=== PATIENT | female | born 1950 | race Caucasian/White ===

== ENCOUNTER 2016-05-23 14:22 | Emergency (ER) | payer OTHER | END 2016-05-23 16:00 | disposition home or self-care (01) | LOC: ER 14:22 | DX: G97.61 Postprocedural hematoma of a nervous system organ or structure following a nervous system procedure (principal); R56.9 Unspecified convulsions; R53.1 Weakness; Z98.890 Other specified postprocedural states; Z87.891 Personal history of nicotine dependence | CPT/HCPCS: 36415; 70450; 80047; 80053; 82947; 85014; 85025; 85610; 85730; 93005 ==